=== PATIENT | female | born 1970 | race Caucasian/White ===

== ENCOUNTER 2017-10-11 20:58 | Emergency (ER) | payer BC ==
--- NOTE | 2017-10-11 21:21 | ED.PDOC ---
History of Present Illness - General Chief Complaint: Fever Stated Complaint: fever, N/V, abdomen pain Time Seen by Provider: 10/11/17 21:10 Source: patient, Vital Signs reviewed Additional Information: 47YEAR OLD WHITE FEMALE PRESENTS WITH 8 DAY HISTORY OF SORE THROAT PAINFUL GUM LINE TREATED BY HER PCP WITH ROCEPHIN INJECTION FOLLOWED BY [facility] BUT NOT FEELING ANY BETTER SHE NOW HAS DEVELOPED ABDOMINAL PAIN AND CONSTIPATIONSHE SHE HAS HISTORY OF SPLENECTOMY AT AGE 16 SHE ALSO HAS BEEN TAKING MINOCYCLINE FOR RHEUMATOID ARTHRITIS AND SHE TAKES HEALTH SUPPLEMENTS - History of Present Illness Timing/Duration: 24 hours Severity: moderate Improving Factors: nothing Allergies/Adverse Reactions: Allergies NO KNOWN ALLERGY Allergy (Verified 10/11/17 21:18) Review of Systems - Review of Systems Constitutional: States: no symptoms reported, fever EENTM: States: throat pain, mouth pain Respiratory: States: no symptoms reported Cardiology: States: no symptoms reported Gastrointestinal/Abdominal: States: abdominal pain, constipation Genitourinary: States: no symptoms reported Musculoskeletal: States: no symptoms reported Skin: States: no symptoms reported Neurological: States: no symptoms reported Endocrine: States: no symptoms reported Family Medical History - Family History Mother Family History: Unknown Physical Exam - Physical Exam General Appearance: Alert, Comfortable Eye Exam: bilateral normal Ears, Nose, Throat: hearing grossly normal, normal ENT inspection, normal pharynx Neck: non-tender, full range of motion, supple Respiratory: chest non-tender, lungs clear, normal breath sounds, no respiratory distress, no accessory muscle use Cardiovascular/Chest: normal peripheral pulses, regular rate, rhythm, no edema, no gallop, no JVD Peripheral Pulses: radial,right: 2+, radial,left: 2+, femoral,right: 2+, femoral ,left: 2+ 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, no motor/sensory deficits, alert, normal mood/affect, oriented x 3 Skin Exam: normal color, warm/dry Progress - Results/Orders Results/Orders: Laboratory Tests 10/11/17 10/11/17 10/11/17 21:34 21:34 21:50 WBC 1.1 L* RBC 4.01 L Hgb 9.9 L Hct 30.3 L MCV 75.7 L MCH 24.6 L MCHC 32.5 L RDW 15.9 H Plt Count 542 H MPV 7.9 Absolute Neuts (auto) Not Reportable Absolute Lymphs (auto) Not Reportable Absolute Monos (auto) Not Reportable Absolute Eos (auto) Not Reportable Neutrophils % Not Reportable Lymphocytes % Not Reportable Lymphocytes % (Manual) 96.0 Monocytes % Not Reportable Monocytes % (Manual) 4.0 Eosinophils % Not Reportable Basophils % Not Reportable Hypochromia 1+ Platelet Estimate Increased Poikilocytosis 4+ Anisocytosis 2+ Target Cells 1+ Schistocytes 3+ Sodium 136 Potassium 3.7 Chloride 101 Carbon Dioxide 27 Anion Gap 11.7 L BUN 11 Creatinine 0.65 BUN/Creatinine Ratio 16.9 Random Glucose 125 H Serum Osmolality 272.8 L Calcium 8.1 L Serum HCG, Qual Negative Group A Strep Rapid 10/11/17 21:51 WBC RBC Hgb Hct MCV MCH MCHC RDW Plt Count MPV Absolute Neuts (auto) Absolute Lymphs (auto) Absolute Monos (auto) Absolute Eos (auto) Neutrophils % Lymphocytes % Lymphocytes % (Manual) Monocytes % Monocytes % (Manual) Eosinophils % Basophils % Hypochromia Platelet Estimate Poikilocytosis Anisocytosis Target Cells Schistocytes Sodium Potassium Chloride Carbon Dioxide Anion Gap BUN Creatinine BUN/Creatinine Ratio Random Glucose Serum Osmolality Calcium Serum HCG, Qual Group A Strep Rapid Negative CT SINUS NORMAL CHEST X RAY NORMAL ABD X RAY CLIPS FROM PAST SPLENECTOMY OTHERWISE NEG Departure - Departure Clinical Impression: Fever in adult, Granulocytopenia, Post-splenectomy Time of Disposition: 23:07 Condition: Fair Departure Forms: ED Discharge - Pt. Copy, Patient Portal Self Enrollment Diet: resume usual diet Referrals: Avery Pitts III, MD [Primary Care Provider] - 1-2 Weeks Transfer to Outside Facility - Transfer Information Accepting Provider:: DR WOLFE [facility] Accepting Facility: [facility] Reason for Transfer: specialized care not available
[2017-10-11] MEDS ORDERED: KETOROLAC TROMETHAMINE INJ 30 MG/ML VIAL IV ONE (21:34)
[2017-10-11] MEDS ORDERED: SODIUM CHLORIDE 0.9% 1000ML 1,000 ML IVS ONE (21:34)
--- NOTE | 2017-10-11 22:14 | RAD ---
EXAM DESCRIPTION: KUB CLINICAL HISTORY: 47 years Female, ABD PAIN COMPARISON: None. TECHNIQUE: KUB FINDINGS: Multiple left abdominal surgical clips. Bowel gas pattern is nonspecific. Pelvic calcifications resemble phleboliths . Underlying osseous structures are intact. IMPRESSION: Nonspecific bowel gas pattern Electronically signed by: Yobani Hunt 10/11/2017 10:12 PM CDT
--- NOTE | 2017-10-11 22:20 | CT ---
EXAM DESCRIPTION: Sinuses CLINICAL HISTORY: 47 years Female, PERSISTANT FACIAL PAIN COMPARISON: None. TECHNIQUE: Axial imaging. No IV contrast. Sagittal and coronal reconstruction FINDINGS: Nasal septum is deviated to the right. Right nasal septal spur formation. Paranasal sinuses are clear. Ostiomeatal units are patent. Orbital globes are normal. Retrobulbar intra and extraconal spaces are unremarkable. Central Office Associate space structures appear normal. No masses. No fluid collections. IMPRESSION: Right nasal septal deviation, with nasal septal spur formation Paranasal sinuses are clear This exam was performed according to our departmental dose-optimization program, which includes automated exposure control, adjustment of the mA and/or kV according to patient size and/or use of iterative reconstruction technique. Electronically signed by: Yobani Hunt 10/11/2017 10:19 PM CDT
[2017-10-11] MEDS ORDERED: CEFEPIME 1 GM in SODIUM CHLORIDE 0.9% 50ML 50 ML IVPB ONE (22:49)
[2017-10-11] MEDS ORDERED: SODIUM CHLORIDE 0.9% 50ML 50 ML ONE (22:56)
[2017-10-11] MEDS ORDERED: CEFEPIME 2 GM VIAL IVPB ONE (22:56)
--- NOTE | 2017-10-11 23:03 | RAD ---
EXAM DESCRIPTION: Chest,1 View CLINICAL HISTORY:47 years Female, fever of unknown origin Comparison: None FINDINGS: Single AP view of the chest Cardiomediastinal silhouette is within normal limits. No focal lung consolidation. No pleural effusion. No pneumothorax. No acute osseous finding. Surgical clips project in the left upper abdomen. IMPRESSION: No acute chest finding. Electronically signed by: Alia Calzada MD 10/11/2017 11:02 PM CDT
[2017-10-11 23:51] VITALS: BP 100/67; TEMP 100.5; O2SAT 98
== END 2017-10-12 | disposition short-term general hospital (02) ==
LOC: ER 20:58
DX: D70.9 Neutropenia, unspecified (principal); R50.81 Fever presenting with conditions classified elsewhere; M06.9 Rheumatoid arthritis, unspecified; Z79.899 Other long term (current) drug therapy
CPT/HCPCS: 36415; 70486; 71045; 74018; 80048; 81001; 84703; 85025; 87040; 87070; 87880; A4216; J0692; J1885; J7030

== ENCOUNTER → 2017-10-15 | Outpatient (CLI) | payer BC | LOC: GMAL 14:49 | PROVIDERS: ATTEND Family Medicine | DX: D50.8 Other iron deficiency anemias (principal); D70.8 Other neutropenia; D75.89 Other specified diseases of blood and blood-forming organs ==

== ENCOUNTER → 2017-12-09 | Outpatient (CLI) | payer BC | LOC: LAB.O 10:08 | DX: M06.9 Rheumatoid arthritis, unspecified (principal) ==

== ENCOUNTER → 2018-03-12 | Outpatient (CLI) | payer BC | LOC: LAB.O 08:48 | DX: M25.50 Pain in unspecified joint (principal) ==

== ENCOUNTER → 2018-04-15 | Outpatient (CLI) | payer SELFPAY | LOC: LAB.O 10:19 | DX: M25.50 Pain in unspecified joint (principal) ==

== ENCOUNTER → 2018-10-14 | Outpatient (CLI) | payer BC ==
--- NOTE | 2018-10-14 15:09 | NM ---
EXAM DESCRIPTION: Bone Scan, Whole Body CLINICAL HISTORY: Rheumatoid Arthritis COMPARISON: None available TECHNIQUE: Following intravenous administration of 25.5 mCi technetium 99m MDP, whole body and spot scintigraphic imaging was performed. FINDINGS: Skull: Unremarkable. Spine: No concerning osteoblastic lesions. Thorax: Symmetric homogeneous physiologic radiotracer activity bilateral ribs and sternum. Abdomen and pelvis: Urinary activity in the bilateral kidneys and urinary bladder. No concerning osteoblastic lesions in the osseous pelvis. Relative symmetric radiotracer activity in the bilateral sacroiliac joints. Extremities: Mild increase uptake of the bilateral shoulders and wrists. Symmetric intense uptake of the bilateral elbows and knees. There is an ovoid focus of increased uptake in the distal left femur. This is nonspecific and may represent nonossifying fibroma, bone island, among other bony lesions. IMPRESSION: 1. Symmetric intense uptake in the bilateral elbows and knees, compatible with history of arthritis. 2. Mild increased uptake of the bilateral shoulders and wrists. 3. An ovoid focus of increased uptake in the distal left femur. This is nonspecific. And may represent nonossifying fibroma, bone island, among other bony lesions. Recommend left femur radiograph for further characterization. Electronically signed by: Avery Krishna MD 10/14/2018 3:06 PM CDT
== END ==
LOC: NM 10-13 09:31
PROVIDERS: ATTEND Family Medicine
DX: M06.9 Rheumatoid arthritis, unspecified (principal)

== ENCOUNTER → 2019-02-28 | Outpatient (CLI) | payer BC ==
--- NOTE | 2019-02-28 09:54 | US ---
US THYROID CLINICAL STATEMENT: Nontoxic single thyroid nodule. . No palpable mass or prior surgery. No history of personal or family history thyroid cancer. No history of thyroid radiation. COMPARISON: None. TECHNIQUE: Transcutaneous scanning, grayscale and Doppler modes. FINDINGS: Size right thyroid lobe: 5.5 x 1.6 x 1.4 cm Size left thyroid lobe: 5.3 x 1.9 x 1.5 cm Size isthmus: 0.28 cm Estimated total number of nodules greater than or equal to 1 cm: None.. Bilateral lobes and isthmus are heterogeneous. No large calcifications or distinct cysts. Nodule 1: Size: 0.5 x 0.4 x 0.3 cm Location: Left Mid Composition: solid or almost completely solid: 2 points Echogenicity: hyperechoic: 1 point Shape: wider than tall: 0 points Margins: smooth: 0 points. Margin hypoechoic. Echogenic foci: none: 0 points ACR Total Points: 3; ACR TI-RADS risk category: TR3 - mildly suspicious nodule. No dominant solid mass or distinct cyst or calcifications in the surrounding soft tissues. IMPRESSION: 1. Nodule 1: ACR TI-RADS 2017 Category TR3. Recommend: No further follow-up.. Recommendations based upon [facility] Best Practice recommendations and ACR TI-RADS 2017 guidelines. Please see below*. 2. Soft tissue around the thyroid gland is unremarkable. *ACR TI-RADS 2017 Recommendations for imaging follow-up of nodules: TR1: No FNA or follow up TR2: No FNA or follow up TR3: FNA if >/= 2.5 cm, follow up if 1.5 - 2.4 cm in 1, 3, and 5 years TR4: FNA if >/= 1.5 cm, follow up if 1.0 - 1.4 cm in 1, 2, 3, and 5 years TR5: FNA if >/= 1.0 cm, follow up if 0.5 - 0.9 cm every year for 5 years ACR TI-RADS recommends that no more than two nodules with the highest ACR TI-RADS total point should be biopsied and no more than four nodules should be followed. These recommendations do not apply to patients with increased risk for thyroid cancer or patients with symptomatic thyroid disease. Electronically signed by: Gene Shell MD 02/28/2019 9:52 AM [facility]
== END ==
LOC: US 08:04
PROVIDERS: ATTEND Family Medicine
DX: E04.1 Nontoxic single thyroid nodule (principal)

== ENCOUNTER → 2019-03-25 | Outpatient (CLI) | payer BC | LOC: GMAL 12:24 | PROVIDERS: ATTEND Family Medicine | DX: D50.8 Other iron deficiency anemias (principal); E03.8 Other specified hypothyroidism; Z79.899 Other long term (current) drug therapy ==

== ENCOUNTER → 2019-08-30 | Outpatient (CLI) | payer BC ==
--- NOTE | 2019-08-30 15:18 | MRI ---
Study: MRI of the Left Elbow. Indication: LOOSE BODY IN ELBOW JOINT LEFT diffuse left elbow pain. Technique: Multiplanar, multi sequence MRI of the left elbow was obtained without intravenous contrast. Comparison: None. Findings: High grade common extensor tendinosis with high grade articular tearing, likely on a chronic basis and only miniscule superficial fibers maintaining continuity to the lateral humeral at the condyle. Radial collateral ligament and lateral ulnar collateral ligament appear torn from their humeral attachment. Common flexor tendinosis with mild interstitial fissuring. Prior partial thickness tearing and laxity of the ulnar collateral ligament. Biceps, brachialis, and triceps tendon insertions intact. Ulnar nerve is located along the ulnar margin of the cubital tunnel and is displaced in the ulnar direction due to a large elbow effusion. Severe osteoarthritis of both elbow compartments noted with extensive grade 4 chondral loss, cortical remodeling, and joint line osteophytes. Numerous millimetric loose bodies and synovitis noted throughout the joint space. No acute fracture identified. Impression: Severe left elbow osteoarthritis with large joint effusion as well as scattered loose bodies/synovitis. High-grade chronic tearing common extensor tendon origin with tearing of the humeral attachments of the radial collateral ligament and lateral ulnar collateral ligament. Common flexor tendinosis with mild interstitial fissuring as well as prior partial thickness tearing of the ulnar collateral ligament. Additional findings as above. Electronically signed by: Leonard Kauffman MD 08/30/2019 3:15 PM CDT
== END ==
LOC: MRI 11:00
PROVIDERS: ATTEND Orthopaedic Surgery
DX: M24.522 Contracture, left elbow (principal); M24.022 Loose body in left elbow; S53.442A Ulnar collateral ligament sprain of left elbow, initial encounter; S46.312S Strain of muscle, fascia and tendon of triceps, left arm, sequela; M19.022 Primary osteoarthritis, left elbow; M25.422 Effusion, left elbow; M77.9 Enthesopathy, unspecified

== ENCOUNTER → 2019-11-22 | Outpatient (CLI) | payer BC ==
--- NOTE | 2019-11-22 13:19 | MRI ---
Study: MRI of the Right Elbow. Indication: RHEUMATOID ARTHRITIS OF RIGHT ELBOW Technique: Multiplanar, multi sequence MRI of the right elbow was obtained without intravenous contrast. Comparison: Contralateral MRI left elbow March 2019. Findings: High grade common extensor tendinosis with low-grade articular tearing, likely on a chronic basis. Partial thickness tearing proximal radial collateral ligament suspected. Common flexor tendinosis without rupture. Prior partial thickness proximal tearing and laxity of the ulnar collateral ligament. Biceps, brachialis, and triceps tendon insertions intact. Ulnar nerve intact. Severe osteoarthritis of both elbow compartments noted with extensive grade 4 chondral loss, cortical remodeling, and joint line osteophytes. Numerous millimetric loose bodies and synovitis noted throughout the joint space. No acute fracture identified. Impression: Severe right elbow osteoarthritis with large joint effusion as well as scattered loose bodies/synovitis. High-grade common extensor tendinosis with low-grade partial thickness articular tearing. Common flexor tendinosis with prior partial thickness tear proximal ulnar collateral ligament. Additional findings as above. Electronically signed by: Leonard Kauffman MD 11/22/2019 1:17 PM CDT
== END | disposition home or self-care (01) ==
LOC: MRI 11:30
PROVIDERS: ATTEND Orthopaedic Surgery
DX: M06.821 Other specified rheumatoid arthritis, right elbow (principal)